=== PATIENT | female | born 1940 | race Caucasian/White ===

== ENCOUNTER → 2018-03-27 13:40 | Outpatient (CLI) | payer MEDICARE, SELFPAY ==
--- NOTE | 2018-03-27 | DI.US.S_ITS ---
PROCEDURE: US MERON LIMITED SINGLE LEVEL INDICATIONS: PERIPHERAL VASCULAR TECHNIQUE: Ankle-brachial indices were obtained bilaterally and recorded. COMPARISONS: FINDINGS: Right ankle brachial index (MERON): 0.73 Left ankle brachial index (MERON): 0.80 IMPRESSION: Mild to moderate vascular deficiency, right greater than left. Lower extremity arterial duplex imaging may be warranted. Dictated by: Nicholas Phoenix M.D. on 03/27/2018 at 14:40 Approved by: Nicholas Phoenix M.D. on 03/27/2018 at 14:42
== END ==
PROVIDERS: Family Provider Family Medicine; PCP Family Medicine; Visit Provider Family Medicine
DX: I73.9 Peripheral vascular disease, unspecified (principal)
CPT/HCPCS: 93922

== ENCOUNTER → 2018-04-09 10:43 | Outpatient (CLI) | payer MEDICARE, SELFPAY ==
--- NOTE | 2018-04-09 | DI.US.S_ITS ---
PROCEDURE: US ARTERIAL DUPLEX LE INDICATIONS: PERIPHERAL VASCULAR DISEASE TECHNIQUE: Color and pulse Doppler interrogation was performed of both lower extremity arterial systems, with image documentation. COMPARISON: [facility], [place], US MERON LIMITED SINGLE LEVEL, 03/27/2018, 0:00. FINDINGS: Right lower extremity: Common femoral artery: 138 cm/sec, with biphasic flow. Deep femoral artery: 120 cm/sec, with triphasic flow. Proximal superficial femoral artery: No flow Mid superficial femoral artery: No flow Distal superficial femoral artery: 72 cm/sec, with monophasic flow. Popliteal artery: 41 cm/sec, with monophasic flow. Posterior tibial artery: No flow Anterior tibial artery/dorsalis pedis: 44 cm/sec, with monophasic flow. Tubbs-scale imaging description: Heavy plaque Left lower extremity: Common femoral artery: 172 cm/sec, with biphasic flow. Deep femoral artery: 85 cm/sec, with biphasic flow. Proximal superficial femoral artery: 108 cm/sec, with monophasic flow. Mid superficial femoral artery: 123 cm/sec, with monophasic flow. Distal superficial femoral artery: 194 cm/sec, with monophasic flow. Popliteal artery: 57 CM per second, with monophasic flow Posterior tibial artery: No flow Anterior tibial artery/dorsalis pedis: 50 cm/sec, with monophasic flow. Tubbs-scale imaging description: Heavy plaque REFERENCE TEXT for Duplex findings DELETE FROM FINAL REPORT Normal: * Triphasic waveforms. * NO spectral broadening. * Femoral arteries 80-100 cm/s. * Popliteal arteries 60-80 cm/s. * Tibial arteries 40-60 cm/s 1-19% stenosis: * Peak systolic velocity 1-29% increased. * Normal triphasic waveform. 20-49% stenosis: * Peak systolic velocity 30-99% increased. * Spectral broadening with or without post-stenotic turbulence. 50-99% stenosis: * Peak systolic velocity more than 100% increased. * Spectral broadening with or without post stenotic turbulence. * Reverse flow component is lost, waveform appears hyperemic. Occlusion: * Proximal waveforms monophasic, with preocclusive thump. * Absent color flow in the artery. * Collateral vessel development. * Distal velocities diminished or absent. * Reconstitution of flow in distal vessels. IMPRESSION: 1. There is heavy atheromatous plaque is noted in both lower extremities. 2. The right superficial femoral artery is occluded in the proximal and mid sections, reconstituted by collaterals distally. The right posterior tibial artery is occluded. 3. There is a 20-49% stenosis present in the distal left SFA. The left posterior tibial artery is occluded. 4. Monophasic waveforms are evident in bilateral runoff vessels, distal to the occluded right SFA and the stenotic left SFA Dictated by: Nicholas Phoenix M.D. on 04/09/2018 at 12:39 Approved by: Nicholas Phoenix M.D. on 04/09/2018 at 12:46
== END ==
PROVIDERS: Family Provider Family Medicine; PCP Family Medicine; Visit Provider Family Medicine
DX: I70.203 Unspecified atherosclerosis of native arteries of extremities, bilateral legs (principal)
CPT/HCPCS: 93925